=== PATIENT | female | born 1985 | race African-American/Black ===

== ENCOUNTER 2017-01-07 09:55 | Inpatient (IN) ==
[2017-01-07] MEDS ORDERED: BETAMETH SODIUM PHOS/ACETATE 30 MG/5 ML VIAL ONE (10:03)
[2017-01-07] MEDS ORDERED: BETAMETH SODIUM PHOS/ACETATE 30 MG/5 ML VIAL IM SCH (10:30)
[2017-01-07] MEDS: LACTATED RINGERS 1,000 ML IV SCH ×2 (12:05→23:49)
[2017-01-07] MEDS ORDERED: ONDANSETRON 4 MG/2 ML VIAL ONE (12:06)
[2017-01-07] MEDS ORDERED: BUTORPHANOL 1 MG/ML VIAL ONE (12:06)
[2017-01-07] MEDS: TERBUTALINE 1 MG/1 ML VIAL SUBCUT PRN (12:09)
[2017-01-07] MEDS ORDERED: ONDANSETRON 4 MG/2 ML VIAL IV ONE (12:15)
[2017-01-07] MEDS ORDERED: BUTORPHANOL 1 MG/ML VIAL IV ONE (12:15)
[2017-01-07] MEDS ORDERED: MAGNESIUM SULF RIDER 100 ML IV ONE (14:12)
[2017-01-07] MEDS ORDERED: MAGNESIUM SULF DRIP 40 GM/1,000 ML ML IV SCH (14:30)
[2017-01-07 14:34] LABS: Basophils % 0.1 % (0.0-0.8); Hematocrit 33.3 VOL% (35.7-47.0); Hemoglobin 11.6 GM/DL (12.0-16.0); Immature Granulocytes Absolute 0.16 #; Lymphocytes # 0.8 10*3/uL (1.4-4.0); Lymphocytes % 5.3 % (21.3-54.2); Mean Corpuscular HGB Conc 34.8 GM/DL (32-36); Mean Corpuscular Hemoglobin 32 PG (27-34); Mean Platelet Volume 11.5 FL (9.6-12.0); Monocytes # 0.5 10*3/uL (0.11-0.8); Neutrophils # 13.9 10*3/uL (1.4-7.4); Neutrophils % 90.6 % (38.7-73.9); Platelet Count 156 T/CUMM (130-400); Red Blood Count 3.58 MC/CUMM (3.8-5.5); Red Cell Distribution Width 13.3 % (9.3-17.3); White Blood Count 15.4 T/CUMM (4-12)
[2017-01-07 15:16] LABS: Alanine Aminotransferase 10 U/L (13-56); Albumin 2.9 G/DL (3.4-5.0); Alkaline Phosphatase 129 U/L (45-117); Aspartate Amino Transferase 11 U/L (0-37); Bilirubin,Total < 0.39 MG/DL (0.2-1.0); Blood Urea Nitrogen 5 MG/DL (7-18); Glucose 137 MG/DL (74-106); Osmolality,Calculated 277.4 MOS/KG (273-304); Potassium 3.5 MMOL/L (3.5-5.1); Sodium 140 MMOL/L (136-145); Total Protein 6.5 G/DL (6.4-8.3)
[2017-01-07 15:53] LABS: Burr Cells Few; Lymphocytes 6 % (20-55); Platelet Estimate Normal; Poikilocytosis Slight; Segmented Neutrophils 92 % (50-85); Total Cells Counted 100
--- NOTE | 2017-01-07 17:51 | OB/GYN History & Physical ---
History of Present Illness Chief complaint: In for c/o uterine contractions History of present illness: Ms. Velasquez is a 31 year old female 3 para 2 living 2 who presented to the labor department with complaints of painful regular uterine contractions. The patient has a history of labor and deliveries 2. Her TRINA is 03/08/2017 for an estimated gestational age of 31 weeks and 4 days. The patient was examined and her cervix was approximately 3 cm dilated. She was placed on the monitor and continue to contract. In light of these findings patient was admitted for management of labor. The risks and benefits were thoroughly discussed the patient and significant other plan of care was discussed with Dr. Null, all parties are in agreement plan. The patient has received her care through the [facility] and until now her course has been uneventful. She has had 2 previous vaginal deliveries at 35 and 36 weeks. The largest weighed 5 pounds and 15 ounces other than delivery she reported no complications with her pregnancies. labs: She is O+, RPR is nonreactive, hepatitis B is negative, HIV is negative, rubella is immune, GBS status unknown. Home Medications Medication Instructions Recorded Confirmed Type Pnv No.95/Ferrous Fum/Folic AC 1 each PO DAILY MDD one tab 10/16/16 01/07/17 History [ Tablet] Acetamin/Codeine 300-30 Tab 1 tablet PO Q4H 01/06/17 01/07/17 History [Tylenol/Codeine #3] Nitrofurantoin Monohyd/M-Cryst 100 mg PO BID 01/06/17 01/07/17 History [Macrobid 100 mg Capsule] Allergies Allergy/AdvReac Type Severity Reaction Status Date / Time No Known Allergies Allergy Verified 11/11/16 03:39 12 point system: reviewed and no additional remarkable complaints except as stated Medical,Surgical,& Family Hx - Medical History Medical History: noncontributory Neurology: No history of: Neurologocal Cancer Reproductive: No history of: Ectopic , Complication - Surgical History Surgical History: noncontributory Reproductive Surgeries: Patient denies;: Section - Social History Smoking Status: Former smoker Frequency of Alcohol Use: None Type of Drug Use: Marijuana Marital Status: Single Lives With:: Significant Other Functional capacity: independent ambulation 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 General appearance: mild distress - Antepartum / Post Antepartum Exam Cervix - Dilatation: 3 cm Effacement: 60% Station: -3 Rupture: Intact Presentation: Vertex Heart Rate: 140 Breast: bilateral: normal Abdomen obstetrics: Present: bowel sounds normal Vagina: Present: normal moisture Uterus exam: Present: enlarged - Head Head exam: Present: normal inspection - Neck Neck exam: Present: normal inspection - Respiratory Respiratory exam: Present: clear to auscultation bilaterally - Cardiovascular Cardiovascular exam: Present: regular rate and rhythm - GI/Abdominal GI/Abdominal exam: Present: normal bowel sounds, soft - Extremities Exam Extremities exam: Present: normal inspection - Neurological Exam Neurological exam: Present: alert, oriented X3 - Psychiatric Psychiatric exam: Present: normal affect, normal mood - Skin Skin exam: Present: normal color, warm Assessment and Plan (1) Active labor Status: Acute Assessment and plan: Admit IV fluids IV magnesium sulfate CBC IV pain meds as needed Active management of labor Current Visit: Yes Results - Labs CBC & BMP: 01/07/17 14:28 01/07/17 14:27 Quality Measures - VTE Contraindication to Pharmacological VTE Prophylaxis: High Risk of Bleeding
[2017-01-07] MEDS: ACETAMINOPHEN 500 MG TABLET PO PRN (19:39)
[2017-01-07] MEDS: ALUMINUM/MAGNES/SIMETH MAX STR 30 ML UDCUP PO PRN (19:39)
[2017-01-08 03:03] LABS: Apearance,Urine Slightly Hazy (Clear); Bacteria,Urine Few /HPF (Few); Bilirubin,Urine Negative (Negative); Blood, Urine Small mg/dL (Negative); Glucose,Urine (UA) 50 mg/dL (Negative); Ketones,Urine 20 mg/dL (Negative); Mucus,Urine Occasional /LPF (Occasional); Nitrite,Urine Negative (Negative); Protein,Urine Negative; RBC,Urine 1 /HPF (0-4); Squamous Epithelial Cell,Urine Occasional /HPF (0-10); Urine Color Straw (Yellow); Urine Specific Gravity 1.005 (1.001-1.035); Urine Urobilinogen < 2.0 EU/DL (0.2-1.0); WBC,Urine <1 /HPF (0-6)
[2017-01-08] MEDS ORDERED: DOCUSATE SODIUM 100 MG CAPSULE PO PRN (03:41)
[2017-01-08] MEDS: DOCUSATE SODIUM 100 MG CAPSULE PO SCH ×2 (03:50→22:09)
[2017-01-08] MEDS: LACTATED RINGERS 1,000 ML IV SCH (04:09)
[2017-01-08] MEDS: ACETAMINOPHEN 500 MG TABLET PO PRN (08:42)
[2017-01-08] MEDS: NIFEdipine 10 MG CAPSULE PO SCH ×4 (09:35→21:37)
--- NOTE | 2017-01-08 09:40 | OB/GYN Progress Note ---
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 Will decrease magnesium and eventually wean off. Exam INSTALLATION TECH - Constitutional Vitals: Vital Signs Temp Pulse Resp BP 01/08/17 03:51 97.5 F L 85 18 102/55 01/08/17 00:00 98 F 86 18 89/51 01/07/17 20:39 97.8 F 01/07/17 20:00 97.7 F 76 18 95/56 01/07/17 19:39 97.8 F General appearance: mild distress - Antepartum / Post Antepartum Exam Cervix - Dilatation: 3 cm Effacement: 60-70% Station: -2 Rupture: Intact Presentation: Vertex Heart Rate: 130s-140 Turney: Occasional contraction about every 10-15 minutes Breast: bilateral: normal Abdomen obstetrics: Present: bowel sounds normal Vagina: Present: normal moisture Uterus exam: Present: enlarged Anus/Rectum: Present: normal perianal skin - Neck Neck exam: Present: normal inspection - Respiratory Respiratory exam: Present: clear to auscultation bilaterally - Cardiovascular Cardiovascular exam: Present: regular rate and rhythm - GI/Abdominal GI/Abdominal exam: Present: normal bowel sounds, soft - Extremities Exam Extremities exam: Present: normal inspection - Back Exam Back exam: Present: normal inspection - Neurological Exam Neurological exam: Present: alert, oriented X3 - Psychiatric Psychiatric exam: Present: normal affect, normal mood - Skin Skin exam: Present: normal color, warm Results - Labs CBC & BMP: 01/07/17 14:28 01/07/17 14:27
[2017-01-08] MEDS: ALUMINUM/MAGNES/SIMETH MAX STR 30 ML UDCUP PO PRN (23:45)
[2017-01-09] MEDS ORDERED: ONDANSETRON 4 MG/2 ML VIAL ONE (02:12)
[2017-01-09] MEDS: NIFEdipine 10 MG CAPSULE PO SCH ×4 (02:58→22:15)
[2017-01-09] MEDS ORDERED: ONDANSETRON 4 MG/2 ML VIAL IV PRN (03:00)
[2017-01-09] MEDS ORDERED: BUTORPHANOL 1 MG/ML VIAL IV ONE (06:28)
[2017-01-09] MEDS: ACETAMINOPHEN 500 MG TABLET PO PRN (06:32)
[2017-01-09] MEDS: DOCUSATE SODIUM 100 MG CAPSULE PO SCH ×2 (08:14→22:32)
[2017-01-09] MEDS: TERBUTALINE 1 MG/1 ML VIAL SUBCUT PRN (08:17)
--- NOTE | 2017-01-09 14:50 | Progress Note ---
Family Medicine PN Sub Interval history: Third day of hospitalization secondary to labor IV magnesium sulfate was discontinued in the last 12 hours, she has been placed on the Procardia 10 mg every 6 hours, and she also received Celestone on her first day of admission secondary to labor. Presently she is still slightly uncomfortable no documented cervical change, will allow this patient be on p.o. meds for the next 24 hours and then determine if she will be discharged. Risks were discussed regarding delivery of baby this patient is fully aware of the consequences. Exam (Progress Note) - Constitutional Vitals: Period Temp Pulse Resp BP Sys/Newton Pulse Ox Last 24 Hr 97.8 F-98.5 F 75-97 18-20 92-105/50-73 Results - Labs CBC & BMP: 01/07/17 14:28 01/07/17 14:27 Quality Measures - VTE Contraindication to Pharmacological VTE Prophylaxis: High Risk of Bleeding
[2017-01-09] MEDS: ALUMINUM/MAGNES/SIMETH MAX STR 30 ML UDCUP PO PRN (22:50)
[2017-01-10] MEDS: NIFEdipine 10 MG CAPSULE PO SCH ×3 (02:00→11:43)
[2017-01-10] MEDS: TERBUTALINE 1 MG/1 ML VIAL SUBCUT PRN (02:38)
[2017-01-10 08:52] VITALS: BP 111/72
--- NOTE | 2017-01-10 12:10 | Discharge Summary ---
Hospital Course - Hospital Course Hospital Course: Ms. Velasquez was admitted with uterine contractions, pelvic exam demonstrated approximately 2-3 cm in thickness. IV fluids Brethine did not diminish the uterine contractions and she was placed on IV magnesium sulfate for 24 hours. Her contractions spaced out she was changed to Procardia 10 mg q. 4. Her cervix has not changed in this patient's feeling much better. This patient also received Celestone on this particular admission as well. She will be discharged and follow-up our office approximately 5 days think from a dictation Discharge Plan - Discharge Data Condition at Discharge: Stable Discharge Diet: advance to your usual diet Activity: increase activity as tolerated, no prolonged standing Hygiene: may shower Driving: not until seen by doctor Contact your physician if you experience:: fever over 101, Bleeding - Discharge Medications New NIFEdipine CAP [Procardia] 10 mg PO Q4HR #60 capsule Continue Acetamin/Codeine 300-30 Tab [Tylenol/Codeine #3] 1 tablet PO Q4H #30 No Action Pnv No.95/Ferrous Fum/Folic AC [ Tablet] 1 each PO DAILY MDD one tab Nitrofurantoin Monohyd/M-Cryst [Macrobid 100 mg Capsule] 100 mg PO BID - Follow Up or Referral - Forms/Instructions Exam - Constitutional Vitals: Period Temp Pulse Resp BP Sys/Newton Pulse Ox Last 24 Hr 97.8 F-99.1 F 69-96 18-18 98-118/54-72 DS: Provider Date of admission: 01/07/17 14:06 Attending physician on admission: Suzette Null MD Consults: 01/07/17 14:06 Consult to Anesthesiology [CONS] Routine Consulting Provider: Reason for Anesthesiology: Epidural Consult Comment: Epidural for pain managment Discharging clinician: Suzette Null MD
== END 2017-01-10 12:30 | disposition home or self-care (01) | DRG 563 ==
LOC: N.LDOUT 09:55 → N.LD 09:56
PROVIDERS: ADMIT Obstetrics & Gynecology; ATTEND Obstetrics & Gynecology

== ENCOUNTER 2017-02-18 11:32 | Inpatient (IN) ==
[2017-02-18] MEDS ORDERED: ONDANSETRON 4 MG/2 ML VIAL IV PRN (12:01)
[2017-02-18] MEDS ORDERED: BUTORPHANOL 1 MG/ML VIAL ONE (12:29)
[2017-02-18] MEDS ORDERED: OXYTOCIN/LR 20 UNIT/1,000 ML BAG IV SCH (12:30)
[2017-02-18] MEDS ORDERED: LACTATED RINGERS 1,000 ML IV SCH (12:30)
[2017-02-18] MEDS ORDERED: BUTORPHANOL 1 MG/ML VIAL IV PRN (12:31)
[2017-02-18] MEDS ORDERED: CITRIC ACID/SODIUM CITRATE 30 ML UDCUP PO ONE (12:42)
[2017-02-18] MEDS ORDERED: fentaNYL 2 MCG/ROPIV 0.2% EPID 150 ML EPIDURAL SCH (12:42)
[2017-02-18] MEDS ORDERED: hydrOXYzine HCL 25 MG/1 ML VIAL IM PRN (12:42)
[2017-02-18] MEDS ORDERED: FAMOTIDINE 20 MG/2 ML VIAL IV ONE (12:42)
[2017-02-18] MEDS ORDERED: PROMETHAZINE 25 MG/1 ML VIAL IM ONE (12:42)
[2017-02-18] MEDS ORDERED: diphenhydrAMINE 50 MG/1 ML VIAL IV PRN ×2 (12:42)
[2017-02-18] MEDS ORDERED: LACTATED RINGERS 1,000 ML IV ONE (12:42)
[2017-02-18] MEDS ORDERED: ePHEDrine 50 MG/ML AMP IV PRN (12:42)
[2017-02-18 13:51] LABS: Basophils % 0.2 % (0.0-0.8); Eosinophils # 0.1 10*3/uL (0.0-0.87); Eosinophils % 0.7 % (0.00-10.9); Hematocrit 40.5 VOL% (35.7-47.0); Hemoglobin 13.9 GM/DL (12.0-16.0); Immature Granulocytes % 0.5 %; Immature Granulocytes Absolute 0.04 #; Lymphocytes % 22.4 % (21.3-54.2); Mean Corpuscular HGB Conc 34.3 GM/DL (32-36); Mean Corpuscular Hemoglobin 32 PG (27-34); Mean Platelet Volume 12.6 FL (9.6-12.0); Monocytes # 0.8 10*3/uL (0.11-0.8); Monocytes % 9.1 % (1.7-12.7); Neutrophils # 5.8 10*3/uL (1.4-7.4); Neutrophils % 67.1 % (38.7-73.9); Platelet Count 167 T/CUMM (130-400); Red Cell Distribution Width 13.9 % (9.3-17.3); White Blood Count 8.7 T/CUMM (4-12)
[2017-02-18 14:01] LABS: Bilirubin,Total 0.4 MG/DL (0.2-1.0); Calcium 9.2 MG/DL (8.5-10.1); Osmolality,Calculated 269.7 MOS/KG (273-304); Total Protein 7.6 G/DL (6.4-8.3)
--- NOTE | 2017-02-18 14:24 | OB/GYN History & Physical ---
History of Present Illness Chief complaint: In with complaints of active labor. History of present illness: Ms. Velasquez is a 31 year old female who is a 3 para 2 living 2. Her TRINA is 03/08/2017 for an estimated gestational age of 37 weeks and 3 days. She presents to the labor department with complaints of painful regular uterine contraction. Upon examination patient was dilated 5 cm. In light of these findings patient will be admitted for management of active labor. The risk and benefits of been thoroughly discussed with this patient and significant other, plan of care has been discussed with Dr. Niall Null and all parties are in agreement with plan. The patient received her care through the [facility] and she received routine care, her course was uneventful. The patient has had 2 previous vaginal deliveries her largest infant weighed 6 pounds and she reported no complications with either other than delivering prematurely. labs: She is O+, rubella is immune , RPR is nonreactive, hepatitis B is negative, HIV is negative, GBS culture status unknown. Review of systems is negative with exception of above. Home Medications Medication Instructions Recorded Confirmed Type Pnv No.95/Ferrous Fum/Folic AC 1 each PO DAILY MDD one tab 10/16/16 02/18/17 History [ Tablet] Acetamin/Codeine 300-30 Tab 1 tablet PO Q4H 01/26/17 02/18/17 History [Tylenol/Codeine #3] NIFEdipine CAP [Procardia] 10 mg PO Q4HR 01/26/17 02/18/17 History Allergies Allergy/AdvReac Type Severity Reaction Status Date / Time No Known Allergies Allergy Verified 01/26/17 12:36 12 point system: reviewed and no additional remarkable complaints except as stated Medical,Surgical,& Family Hx - Medical History Medical History: noncontributory Neurology: No history of: Neurologocal Cancer Reproductive: No history of: Ectopic , Complication - Surgical History Surgical History: noncontributory Reproductive Surgeries: Patient denies;: Section - Family History Family History: Reports;: Family Cancer - Social History Smoking Status: Former smoker Have you smoked in the last 12 months: Yes Type of Drug Use: Marijuana Marital Status: Single Lives With:: Significant Other Functional capacity: independent ambulation 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 General appearance: mild distress - Antepartum / Post Antepartum Exam Cervix - Dilatation: 5 cm Effacement: 90% Station: -1 Rupture: intact Presentation: vtx Heart Rate: 140s Breast: bilateral: normal Abdomen obstetrics: Present: bowel sounds normal Vagina: Present: normal moisture, discharge Uterus exam: Present: enlarged - Head Head exam: Present: normal inspection - Neck Neck exam: Present: normal inspection - Respiratory Respiratory exam: Present: clear to auscultation bilaterally - Cardiovascular Cardiovascular exam: Present: regular rate and rhythm - GI/Abdominal GI/Abdominal exam: Present: normal bowel sounds, soft - Extremities Exam Extremities exam: Present: normal inspection - Back Exam Back exam: Present: normal inspection - Neurological Exam Neurological exam: Present: alert, oriented X3 - Psychiatric Psychiatric exam: Present: normal affect, normal mood - Skin Skin exam: Present: normal color, warm Assessment and Plan (1) Active labor Status: Acute Assessment and plan: Admit IV fluids IV Pitocin Artificial rupture membranes when appropriate Internal monitors if indicated Epidural anesthesia if desired Anticipate Current Visit: Yes Results - Labs CBC & BMP: 02/18/17 13:44 02/18/17 Unknown Quality Measures - VTE Contraindication to Pharmacological VTE Prophylaxis: Continuous Epidural Infusion
[2017-02-18] MEDS ORDERED: OXYTOCIN/LR 20 UNIT/1,000 ML BAG IV ONE (18:05)
[2017-02-18] MEDS ORDERED: RHO(D) IMMUNE GLOBULIN 300 MCG SYRINGE IM ONE (18:08)
[2017-02-18] MEDS ORDERED: DIPH/TET/ACEL PERT BOOSTER VACCINE 0.5 ML VIAL IM ONE (18:08)
[2017-02-18] MEDS ORDERED: oxyCODONE/ACETAMINOPHEN 5-325 MG TABLET PO PRN (18:08)
[2017-02-18] MEDS ORDERED: HYDROCORTISONE 2.5% RECTAL CREAM 30 GM TUBE TOP PRN (18:08)
[2017-02-18] MEDS ORDERED: BENZOCAINE 20%/MENTHOL 0.5% SPRAY 56 GM CAN TOP PRN (18:08)
[2017-02-18] MEDS ORDERED: WITCH HAZEL PADS 100/JAR TOP PRN (18:08)
[2017-02-18] MEDS ORDERED: LANOLIN 50% CREAM 0.3 OZ TUBE TOP PRN (18:08)
[2017-02-18] MEDS ORDERED: BISACODYL 10 MG SUPP RECTAL PRN (18:08)
[2017-02-18] MEDS ORDERED: MEASLES/MUMPS/RUBELLA VACCINE 0.5 ML VIAL SUBCUT ONE (18:08)
[2017-02-18] MEDS ORDERED: ACETAMINOPHEN 325 MG TABLET PO PRN (18:08)
--- NOTE | 2017-02-18 18:08 | Event Note ---
HPI: Ms. Velasquez presented to the labor department in active labor. The risk and benefits were discussed with this patient and significant other, plan of care was discussed with Dr. Null and all parties were in agreement with plan. Stage I: The patient was admitted she received IV fluids and IV Pitocin per protocol. Artificial rupture membranes was performed with clear fluid noted. An epidural was obtained for pain control. The patient progressed in labor with a CAT 1 tracing. She progressed rapidly and had an uneventful course of labor. Stage II: The patient was complete and complained of pressure and strong desire to push. She pushed for approximately 5 minutes at which time the 's head was delivered. Mouth and nose suctioned on the perineum. The remainder of the infant was delivered at 1449. The infant was placed on the mom's abdomen for skin to skin bonding. Apgars were 8 at 1 minute and 9 at 5 minutes. weight was 6 pounds and 10 ounces. A cord pH was obtained and sent to the lab. Stage III: A spontaneous delivery of a Bill[place] placenta with a three-vessel cord noted. The placenta was further examined appeared to be grossly intact. The vagina cervix inspected with a first-degree perineal laceration noted which was repaired. Epidural anesthesia remain in effect on repair. Estimated blood loss was approximately 150 cc. At the time of dictation mother and baby were both in stable condition.
[2017-02-18] MEDS ORDERED: ACETAMINOPHEN/CODEINE 300-30 MG TABLET PO PRN (18:10)
--- NOTE | 2017-02-18 18:48 | Anesthesia Post-Op ---
Anesthesia Post OP - Post Ansesthetic Evaluation Patient seen in post op: Yes Resp: within normal limits CV: within normal limits Mental: within normal limits Temp: within normal limits [id number]: within normal limits Nausea and Vomiting: within normal limits Pain: within normal limits
[2017-02-18] MEDS: IBUPROFEN 800 MG TABLET PO PRN (19:48)
[2017-02-18] MEDS: oxyCODONE/ACETAMINOPHEN 5-325 MG TABLET PO PRN (21:04)
[2017-02-18] MEDS: DOCUSATE SODIUM 100 MG CAPSULE PO SCH (21:04)
[2017-02-19] MEDS: oxyCODONE/ACETAMINOPHEN 5-325 MG TABLET PO PRN ×2 (04:20→20:14)
[2017-02-19] MEDS: IBUPROFEN 800 MG TABLET PO PRN ×3 (04:20→20:12)
[2017-02-19 05:03] LABS: Basophils % 0.2 % (0.0-0.8); Eosinophils # 0.2 10*3/uL (0.0-0.87); Eosinophils % 2.1 % (0.00-10.9); Hematocrit 28.6 VOL% (35.7-47.0); Hemoglobin 9.9 GM/DL (12.0-16.0); Immature Granulocytes % 0.7 %; Immature Granulocytes Absolute 0.07 #; Lymphocytes # 2.3 10*3/uL (1.4-4.0); Mean Corpuscular HGB Conc 34.6 GM/DL (32-36); Mean Corpuscular Hemoglobin 32 PG (27-34); Mean Corpuscular Volume 91.4 FL (87-102); Mean Platelet Volume 12.2 FL (9.6-12.0); Monocytes # 0.9 10*3/uL (0.11-0.8); Monocytes % 8.9 % (1.7-12.7); Neutrophils % 66.1 % (38.7-73.9); Platelet Count 126 T/CUMM (130-400); Red Blood Count 3.13 MC/CUMM (3.8-5.5); Red Cell Distribution Width 13.8 % (9.3-17.3); White Blood Count 10.6 T/CUMM (4-12)
[2017-02-19] MEDS: DOCUSATE SODIUM 100 MG CAPSULE PO SCH ×2 (08:52→20:11)
--- NOTE | 2017-02-19 09:33 | OB/GYN Progress Note ---
Assessment and Plan (1) Active labor Status: Acute Assessment and plan: Admit IV fluids IV Pitocin Artificial rupture membranes when appropriate Internal monitors if indicated Epidural anesthesia if desired Anticipate Current Visit: Yes (2) Vaginal delivery Status: Acute Assessment and plan: Initiate routine orders. 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 Bonding well with . Exam MACHINE II CUTTER - Constitutional Vitals: Vital Signs Temp Pulse Resp BP Pulse Ox 02/19/17 07:18 97 F L 50 L 18 91/62 100 02/19/17 06:00 18 02/19/17 04:00 98.6 F 56 L 18 93/50 98 02/19/17 02:00 18 02/19/17 00:00 98.5 F 55 L 18 103/59 98 02/18/17 15:20 97.4 F L 84 20 105/68 98 02/18/17 14:20 97.4 F L 82 18 102/64 98 02/18/17 13:20 97.2 F L 81 20 102/65 97 02/18/17 12:50 97.2 F L 54 L 18 105/62 97 02/18/17 12:20 97.6 F 56 L 20 99/65 97 General appearance: normal weight, no acute distress - Antepartum / Post Post Exam Breast: bilateral: normal Abdomen obstetrics: Present: bowel sounds normal Vagina: Present: normal moisture, discharge (Light lochia room) Uterus exam: Present: enlarged (Fundus firm and midline) Anus/Rectum: Present: normal perianal skin - Respiratory Respiratory exam: Present: clear to auscultation bilaterally - Cardiovascular Cardiovascular exam: Present: regular rate and rhythm - GI/Abdominal GI/Abdominal exam: Present: normal bowel sounds, soft - Extremities Exam Extremities exam: Present: normal inspection - Neurological Exam Neurological exam: Present: alert, oriented X3 - Psychiatric Psychiatric exam: Present: normal affect, normal mood - Skin Skin exam: Present: normal color, warm Results - Labs CBC & BMP: 02/19/17 04:52 02/18/17 Unknown
[2017-02-19] MEDS: FERROUS SULFATE 325 MG TABLET PO SCH ×2 (10:27→20:11)
[2017-02-19 15:27] LABS: Barbiturates Screen,Urine Negative (Negative); Benzodiazepines Screen,Urine Negative (Negative); Cannabinoid Screen,Urine Positive (Negative); Opiate Screen,Urine Negative (Negative); Phencyclidine Screen,Urine Negative (Negative)
[2017-02-20] MEDS: oxyCODONE/ACETAMINOPHEN 5-325 MG TABLET PO PRN ×2 (02:20→08:00)
[2017-02-20 07:55] VITALS: BP 107/62
[2017-02-20] MEDS: DOCUSATE SODIUM 100 MG CAPSULE PO SCH (07:59)
[2017-02-20] MEDS: FERROUS SULFATE 325 MG TABLET PO SCH (07:59)
[2017-02-20] MEDS: IBUPROFEN 800 MG TABLET PO PRN (07:59)
--- NOTE | 2017-02-20 08:52 | Discharge Summary ---
Hospital Course - Hospital Course Hospital Course: Status post vaginal day #2 Physical exam is unremarkable Lungs clear, cardiac exam benign, uterus is nice and firm, Extremities well with no limits, neurologic grossly intact Status post vaginal Discharge today return her office approximately 6 weeks Specialty Discharge - Follow Up or Referrals Follow up with: Suzette Null MD [Physician] - Discharge Plan - Discharge Data Condition at Discharge: Stable Discharge Diet: advance to your usual diet Activity: increase activity as tolerated Hygiene: may shower Weight Bearing at Discharge: weight bear as tolerated Driving: not until seen by doctor - Discharge Medications New Acetamin/Codeine 300-30 Tab [Tylenol/Codeine #3] 2 tablet PO Q4H PRN #30 tablet PRN Reason: Pain Mild (1-3) Ferrous Sulfate Tab [Feosol Original Tab] 325 mg PO BID #60 tablet Ibuprofen Tab [Motrin Tab] 800 mg PO Q6H PRN #30 tablet PRN Reason: Pain Moderate (4-7) No Action NIFEdipine CAP [Procardia] 10 mg PO Q4HR Pnv No.95/Ferrous Fum/Folic AC [ Tablet] 1 each PO DAILY MDD one tab Acetamin/Codeine 300-30 Tab [Tylenol/Codeine #3] 1 tablet PO Q4H - Follow Up or Referral Follow Up: Suzette Null MD [Physician] - - Forms/Instructions Instructions: Perineal Care (DC), Vaginal Delivery (DC), Bleeding (DC) Exam - Constitutional Vitals: Period Temp Pulse Resp BP Sys/Newton Pulse Ox Last 24 Hr 97.1 F-98.8 F 54-77 18-20 101-125/49-85 97-98 Discharge Results Labs on day of discharge: Labs from last 24 hours 02/19/17 13:45 Urine Opiates Screen Negative Ur Barbiturates Screen Negative Ur Phencyclidine Scrn Negative U Amphetamine/Methamph Negative U Benzodiazepines Scrn Negative U Cocaine Metab Screen Negative U Cannabinoids Screen Positive H DS: Provider Date of admission: 02/18/17 12:01 Attending physician on admission: Suzette Null MD Consults: 02/18/17 12:01 Consult to Anesthesiology [CONS] Routine Consulting Provider: Reason for Anesthesiology: Epidural Consult Comment: Epidural for pain managment 02/18/17 18:08 Consult to Granulating Machine Operator [CONS] Routine Consult Granulating Machine Operator: Breast Feeding 02/20/17 00:17 Consult to Case Mgmt/Social Srvs [CONS] Routine Reason for Case Mgmt/Social Srvs: Other Consult Comment: Positive drug screen Discharging clinician: Suzette Null MD
== END 2017-02-20 14:30 | disposition home or self-care (01) | DRG 560 ==
LOC: N.LDOUT 11:32 → N.LD 11:34 → N.OB 16:26
PROVIDERS: ADMIT Obstetrics & Gynecology; ATTEND Obstetrics & Gynecology